=== PATIENT | male | born 1985 | race Caucasian/White ===

== ENCOUNTER 2017-01-04 14:31 | Emergency (ER) | payer SELFPAY ==
--- NOTE | ~2017-01-04 | CT2 ---
[facility]. [facility] A Service of [facility] & [facility] RADIOLOGY TEXT RESULTS PATIENT: BRE CASTREJON LOCATION: SED : 83 UNIT #: [id number] AGE: [address]: Jose Maria Garcia MD SEX: M ORDER DR: [id number] [place] [id number] E MR#: [id number] Acc #: [id number] NAME: BRE CASTREJON : 1985 SEX: M STUDY DATE/TIME: 01/04/2017 16:45 UNIT: SED ROOM: STUDY DESCRIPTION: CT Abd and Pelv W Cont Attending Physician: Jose Maria Garcia M.D. Ordering Physician: Jose Maria Garcia M.D. Primary Care Physician: No Primary Care Physician MEDICAL IMAGING REPORT This report is preliminary unless electronic signature is present. EXAM CT abdomen and pelvis. HISTORY Pain. Generalized abdomen pain, headaches, dizziness, onset Friday. TECHNIQUE CT of the abdomen and pelvis performed with intravenous administration of 100 mL Isovue-370. Enteric contrast not administered. This CT exam was performed with one or more of the following radiation dose reduction techniques: automatic exposure control, adjustment of mA and/or kV according to patient size, and iterative reconstruction. COMPARISON No comparisons. FINDINGS Patchy and linear areas of presumed atelectasis bilateral lung bases. The inferior heart and pericardium suggest heart at upper limits of normal in size. Liver, gallbladder, spleen notable for spleen at upper limits of normal in size measuring about 13.2 cm in greatest diameter. No focal splenic abnormalities seen. The pancreas, adrenal glands, kidneys are remarkable. CT PELVIS: No inguinal adenopathy. Urinary bladder unremarkable. No fluid collection in pelvis. No pelvic or retroperitoneal adenopathy. The distal esophagus, stomach, small bowel unremarkable. The appendix is present and normal in appearance. Immediately adjacent/cephalad to the ileocecal valve, there is ascending colon mural thickening and adjacent inflammatory change. There appears to be an inflamed diverticulum at this location. The appearance suggests acute proximal colon diverticulosis. The thickened colon extends over a distance of about 4-5 cm. No free air, abscess or fluid collection. I would recommend short-interval followup [facility]. [facility] A Service of [facility] & [facility] RADIOLOGY TEXT RESULTS PATIENT: BRE CASTREJON LOCATION: SED : 83 UNIT #: [id number] AGE: [address]: Jose Maria Garcia MD SEX: M ORDER DR: after treatment for diverticulitis to confirm resolution of mural thickening. Uncomplicated diverticula elsewhere in the colon. The vascular structures are unremarkable. Bony structures show no acute abnormality. IMPRESSION 1. Findings most consistent with acute diverticulitis involving the proximal ascending colon beginning at the level of the ileocecal valve. There is concentric mural thickening over a segment of proximal colon measuring 4 to 5 mm in length. At least 1 inflamed diverticulum is seen along the anteromedial ascending colon and there is adjacent inflammatory fat stranding and haziness. There is no resulting obstruction, free air, fluid collection or abscess. Follow up imaging after treatment for diverticulitis is recommended to confirm resolution of wall thickening. 2. Please note that the appendix is identified and is normal in appearance. It is separate from the area of inflammatory change. 3. No other acute findings. Note is made of borderline splenic enlargement with the spleen measuring about 13.2 cm in greatest length. See remainder of details in body of report above. Dictated by... Darwin Parham M.D. THIS IS AN ELECTRONICALLY VERIFIED REPORT Darwin Parham M.D. at 01/05/2017 9:31 PM Faisal TD: 01/04/2017 23:14 JOB #: [id number] MEDICAL IMAGING REPORT Page 1 of 1
[~2017-01-04 14:31] MED LIST: BACTRIM DS TABL1 TA1 PO
[2017-01-04 16:04] LABS: URINE SOURCE CLEAN CATCH
[2017-01-04 16:05] LABS: BASOPHIL# 0.1 X10e3 (0-0.3); BASOPHIL% 0.7 % (0-2.5); EOSINOPHIL# 0.1 X10e3 (0-0.7); EOSINOPHIL% 0.7 % (0.0-7.0); HEMATOCRIT 50.7 % (38.0-50.0); HEMOGLOBIN 17.3 gm/dL (13.0-16.0); LYMPHOCYTE# 2.1 X10e3 (1.0-3.5); LYMPHOCYTE% 14.2 % (17.0-45.0); MEAN CELL VOLUME 83.7 FL (83-96); MEAN CORPUSCULAR HEMOGLOBIN 28.5 PG (28-34); MEAN CORPUSCULAR HGB CONC 34.1 g/dL (30-36); MEAN PLATELET VOLUME 11.1 FL (6.5-11.5); MONOCYTE# 1.1 X10e3 (0-1.0); MONOCYTE% 7.1 % (3.0-12.0); NEUTROPHIL# 11.7 X10e3 (1.5-7.1); NEUTROPHIL% 77.3 % (40-75); PLATELET COUNT 205 X10e3 (140-420); RED BLOOD COUNT 6.06 X10e (3.90-5.60); RED CELL DISTRIBUTION WIDTH 13.3 % (11.0-15.5); WHITE BLOOD COUNT 15.1 X10e3 (4.0-10.5)
[2017-01-04 16:07] LABS: URINE APPEARANCE CLEAR; URINE BILIRUBIN NEG (NEG); URINE BLOOD NEG (NEG); URINE COLOR YELLOW; URINE GLUCOSE NEG (NORM); URINE KETONE NEG (NEG); URINE LEUKOCYTE ESTERASE NEG (NEG); URINE NITRATE NEG (NEG); URINE PH 6.5 (5-8); URINE PROTEIN NEG (NEG); URINE UROBILINOGEN 0.2 MG/DL (NORM)
[2017-01-04 16:09] LABS: DIFF IND NO
[2017-01-04 16:15] LABS: MICRO INDICATED? NO
[2017-01-04 16:17] LABS: AMPHETAMINE NEG (NEG); BARBITURATES NEG (NEG); BENZODIAZEPINES NEG (NEG); COCAINE NEG (NEG); MARIJUANA POS (NEG); OPIATES NEG (NEG); TRICYCLIC ANTIDEPRESSANTS NEG (NEG); U METHADONE NEG (NEG)
[2017-01-04 16:26] LABS: ALBUMIN SERUM 4.7 g/dL (3.5-5.0); ALKALINE PHOSPHATASE 88 U/L (32-92); ALT (SGPT) 49 U/L (10-40); AMYLASE 15 U/L (0-46); AST (SGOT) 22 U/L (10-42); BILIRUBIN,TOTAL 0.9 mg/dL (0.2-2.0); BLOOD UREA NITROGEN 11 mg/dL (9-23); BUN/CREATININE RATIO 12.22; CALCIUM SERUM 9.2 mg/dL (8.4-10.2); CARBON DIOXIDE 26 mmol/L (22-31); CHLORIDE 99 mmol/L (100-111); CREATININE SERUM 0.9 mg/dL (0.6-1.4); GLOM FILT RATE Estimated 112.6 mL/min (>60); GLUCOSE FASTING 108 mg/dL (70-110); LIPASE 27 U/L (22-51); PROTEIN TOTAL SERUM 7.9 g/dL (6.0-8.3); SODIUM 135 mmol/L (135-145)
[2017-01-04 16:35] LABS: ALCOHOL BLOOD <5 mg/dL ([, 0])
== END 2017-01-04 18:01 | disposition home or self-care (01) ==
LOC: SED 14:31
PROVIDERS: Emergency Medicine
DX: K57.32 Diverticulitis of large intestine without perforation or abscess without bleeding (principal); F17.200 Nicotine dependence, unspecified, uncomplicated
CPT/HCPCS: 36415; 74177; 80053; 80307; 81003; 82150; 83690; 85025; 96361; 96374; 96375; 99284; G0480; J1170; J2270; J2405; Q9967